=== PATIENT | female | born 1980 | race Caucasian/White ===

== ENCOUNTER 2016-08-16 18:11 | Emergency (ER) | payer OTHER ==
[~2016-08-16] VITALS: Ht 162.6 cm; Wt 113.4 kg
[2016-08-16 18:25] VITALS: BP 124/78
== END 2016-08-16 19:00 | disposition admitted as inpatient to this hospital (09) ==
LOC: ERH 18:11
DX: M54.89 Other dorsalgia (principal); M25.511 Pain in right shoulder; V89.2XXA Person injured in unspecified motor-vehicle accident, traffic, initial encounter